=== PATIENT | female | born 1960 | race Caucasian/White ===

== ENCOUNTER 2019-11-08 09:17 | Outpatient (CLI) | payer MEDICAID, SELFPAY ==
--- NOTE | 2019-11-08 09:30 | USCV_ITS ---
Bret Matilda Age: 59 Gender: F : 1960 Exam Date: 11/08/2019 09:24 Ordering Phys: Margy Covington MD ([email or web address]) Technologist: Ying Stephenson Exam Location: [facility] [place] Indication: ABDOMINAL PAIN POST EVAR HISTORY: Abdominal pain post evar Diameter (cm) AP x Transverse x Length Velocity (cm/s) Waveform Prox Aorta: 1.64 x 1.72 x 76.70 Mid Aorta: 1.34 x 1.51 x 113.00 Distal Aorta: 1.17 x 1.46 x 93.00 Right Iliac Prox: 1.14 x 0.96 x 74.80 Left Iliac Prox: 0.82 x 0.84 x 92.90 Stent Prox Landing x x Aneurysmal Sac Max x x Lt Lat Sac Dim Rt Lat Sac Dim Stent Dist Landing x x Right Iliac Stent x x Left Iliac Stent x x Right Renal Art Left Renal Art FINDINGS: Related to heavy diffuse plaques in the abdominal aorta Normal Doppler flow velocities in the stented segment of the aorta The aneurysm sac could not be well visualized Aortic stent graft was visualized but the landing zones could not be identified CONCLUSIONS Aortic stent graft appears to be patent. Moderate to heavy diffuse plaques in the abdominal aorta Aneurysm sac could not be visualized Normal proximal common iliac artery dimensions bilaterally Technically difficult study Consider CTA, to better evaluate the abdominal aorta, if clinically indicated Dr Herman Elaine MD FAC (Electronically Signed) Final Date: 11 November 2019 19:48 S
--- NOTE | 2019-11-08 10:15 | USCV_ITS ---
Bret Matilda Age: 59 Gender: F : 1960 Exam Date: 11/08/2019 09:42 Ordering Phys: Margy Covington MD ([email or web address]) Technologist: Ying Stpehenson Exam Location: [facility] [place] Indication: LEG PAIN Risk Factors: AAA Previous Vascular Surgery: STENTS RIGHT LEFT BP: 163.0 / 72.00 BP: 160.0/ 68.00 0 0 Waveform Velocity (cm/s) Velocity (cm/s) Waveform Biphasic 132.1 Iliac Prox 173.8 Biphasic Biphasic Iliac Mid Biphasic 144.5 106.8 Biphasic 155.7 Iliac Distal 106.8 Biphasic Biphasic 151.7 LAY OUT DRAFTER 124.9 Biphasic Biphasic 93.4 SFA Prox 56.8 Biphasic Biphasic 81.3 SFA Mid 67.9 Biphasic Biphasic 82.6 SFA Dist 64.2 Biphasic Biphasic 53.8 POP 53.1 Biphasic Biphasic 69.2 TAPE FOLDING MACHINE OPERATOR 46.9 Biphasic Biphasic 44.2 DPA 30.7 Biphasic 0.9 ADITYA 0.9 FINDINGS RT TAPE FOLDING MACHINE OPERATOR 150 RT DPA 120 LT TAPE FOLDING MACHINE OPERATOR 130 LT DPA 145 Mild to moderate plaques in the iliac arteries bilaterally CONCLUSIONS 1. Slightly diminished resting ABIs bilaterally, suggestive of mild peripheral artery disease 2. Mild to moderate plaques bilaterally in the iliac arteries. Dr Herman Elaine MD [facility] (Electronically Signed) Final Date: 11 November 2019 19:52 S
== END 2019-11-08 09:18 | disposition home or self-care (01) ==
PROVIDERS: Family Provider Nurse Practitioner; PCP Nurse Practitioner; Visit Provider Internal Medicine Cardiovascular Disease
DX: M79.604 Pain in right leg (principal); M79.605 Pain in left leg; I73.9 Peripheral vascular disease, unspecified; I70.8 Atherosclerosis of other arteries; R10.9 Unspecified abdominal pain; I71.4 Abdominal aortic aneurysm, without rupture
CPT/HCPCS: 93925; 93978

== ENCOUNTER 2020-03-04 13:05 | Outpatient (CLI) | payer MEDICAID, SELFPAY ==
--- NOTE | 2020-03-04 14:15 | USCV_ITS ---
ElisabethMatilda oswald Age: 59 Gender: F : 1960 Exam Date: 03/04/2020 13:26 Ordering Phys: Margy Covington MD ([email or web address]) Technologist: Kari Kolb [place] [facility] [place]ication: PAD Risk Factors: Previous Vascular Surgery: Right Brachial BP: / Left Brachial BP: / Right Left Velocity (cm/s) Spectral Plaque Velocity (cm/s) Spectral Plaque Syst/Diast Broadening Syst/Diast Broadening 80.50/ 20.90 Prox CCA 64.70 / 18.80 76.10/ 18.70 Mid CCA 62.80 / 15.00 72.80/ 20.90 Distal CCA 61.00 / 18.80 51.80/ 20.90 Prox ICA 174.40/ 35.90 56.20/ 16.50 Mid ICA 67.40 / 23.80 63.90/ 19.80 Distal ICA 53.50 / 20.60 101.40 ECA 107.90 0.84 ICA/CCA 2.78 Antegrade Vertebral Antegrade 41.50/ 8.30 cm/s 34.50/ 6.80 cm/s Bi Subclavian Bi 81.40 163.9 0 FINDINGS Comparison: none available. Diffuse bilateral scattered calcified plaque and intimal thickening throughout the common carotid arteries and extending through the bifurcation. Moderate stenosis left proximal ICA. Bilateral antegrade vertebral arteries. CONCLUSIONS Left ICA stenosis 50-69%. Right ICA stenosis < 50%. Dr. Denisse Solano DO (Electronically Signed) Final Date: 04 March 2020 15:24 S
== END 2020-03-04 13:06 | disposition home or self-care (01) ==
PROVIDERS: PCP Nurse Practitioner; Visit Provider Internal Medicine Cardiovascular Disease
DX: I73.9 Peripheral vascular disease, unspecified (principal); I65.23 Occlusion and stenosis of bilateral carotid arteries
CPT/HCPCS: 93880

== ENCOUNTER → 2020-09-08 15:14 | Outpatient (BNVA) | payer MEDICAID, SELFPAY | PROVIDERS: PCP Nurse Practitioner; Visit Provider Nurse Practitioner | DX: J44.9 Chronic obstructive pulmonary disease, unspecified (principal) | CPT/HCPCS: 71046; 80053; 85025 ==

== ENCOUNTER 2020-12-17 08:20 | Outpatient (CLI) | payer MEDICAID, SELFPAY ==
--- NOTE | 2020-12-17 08:27 | USCV_ITS ---
Matilda Queen Age: 60 Gender: F : 1960 Exam Date: 12/17/2020 09:06 Ordering Phys: Margy Covington MD ([email or web address]) Technologist: Maxi Leigh [place] [facility] [place]ication: LV FUNCTION/ PSVT BP: 139 / 67 HR: 48 Rhythm: Sinus Technical Quality: Fair MEASUREMENTS (Male / Female) Normal Values 2D ECHO LV Diastolic Diameter PLAX 3.3 cm 4.2 - 5.9 / 3.9 - 5.3 cm LV Systolic Diameter PLAX 2.2 cm IVS Diastolic Thickness 0.8 cm 0.6 - 1.0 / 0.6 - 0.9 cm IVS Systolic Thickness 1.3 cm LVPW Diastolic Thickness 1.3 cm 0.6 - 1.0 / 0.6 - 0.9 cm LVPW Systolic Thickness 1.3 cm LVOT Diameter 2.0 cm LV Ejection Fraction 2D Teich 64.7 % LV Ejection Fraction MOD 2C 74.9 % LV Ejection Fraction 2C AL 75.8 % LA Diameter 3.0 cm LA Width 2.8 cm LA Height 4.3 cm RA Width 2.5 cm RA Height 3.4 cm Aorta at Sinotubular Diameter 1.9 cm DOPPLER AV Peak Velocity 113.0 cm/s LVOT Peak Velocity 81.0 cm/s AV Area Cont Eq vti 2.4 cm squared AV Area Cont Eq pk 2.2 cm squared MV Peak Velocity 520.0 cm/s MV Area PHT 3.0 cm squared Mitral E to A Ratio 1.0 MV E' Velocity 49.5 cm/s Mitral E to MV E' Ratio 7.5 Mitral E to LV E' Lateral Ratio 7.4 Mitral E to LV E' Septal Ratio 7.6 TR Peak Velocity 172.4 cm/s TR Peak Gradient 11.9 mmHg TR Mean Velocity 78.0 cm/s TR Mean Gradient 2.5 mmHg TR Velocity Time Integral 28.6 cm PV Peak Velocity 48.0 cm/s FINDINGS Left Ventricle Normal left ventricular cavity size and systolic function. Upper normal left ventricular wall thickness. Left ventricular ejection fraction is estimated at 65 %. No regional wall motion abnormalities. Normal diastolic function. Right Ventricle Normal right ventricular size and systolic function. Right ventricular systolic pressure 26 mmHg. Right Atrium Normal right atrial size. Right atrial pressure estimated at 3 mmHg. Left Atrium Mildly increased left atrial size. Mitral Valve Mildly thickened mitral valve. No mitral valve stenosis. Trace mitral valve regurgitation. Aortic Valve Aortic valve not well visualized. No aortic valve stenosis. No aortic valve regurgitation. Tricuspid Valve Structurally normal tricuspid valve. No tricuspid valve stenosis. Mild tricuspid valve regurgitation. Pulmonic Valve Pulmonic valve not well visualized. No significant pulmonary valve regurgitation. Pericardium No pericardial effusion. Aorta Normal-sized aortic root. Normal-sized inferior vena cava with less than 50% respiratory variation. CONCLUSIONS 1. Normal left ventricular cavity size and systolic function. Upper normal left ventricular wall thickness. Left ventricular ejection fraction is estimated at 65 %. No regional wall motion abnormalities. Normal diastolic function. 2. Normal right ventricular size and systolic function. 3. Pulmonary artery pressure estimated 26 mmHg. 4. Mild tricuspid valve regurgitation. 5. No prior similar studies to compare. Margy Covington MD (Electronically Signed) Final Date: 19 December 2020 10:07 S
== END 2020-12-17 08:21 | disposition home or self-care (01) ==
PROVIDERS: PCP Nurse Practitioner; Visit Provider Internal Medicine Cardiovascular Disease
DX: Z86.79 Personal history of other diseases of the circulatory system (principal); I07.1 Rheumatic tricuspid insufficiency
CPT/HCPCS: 93306

== ENCOUNTER 2021-03-30 10:38 | Outpatient (CLI) | payer MEDICAID, SELFPAY ==
--- NOTE | 2021-03-30 10:44 | XR_ITS ---
WS: [id number] XR hip LT 2-3V wo/w pel* [id number] REASON FOR EXAM: M25.552 - Pain in left hip FINDINGS: Moderately severe narrowing of the joint space. Osteophytosis and sclerosis of the adjacent acetabulum and femoral head. Presumed calcification of the joint capsule versus tendon calcification/insertion greater trochanter. This has developed since the previous examination 2011. No focal bone lesion. No fracture or dislocation. XR/XR hip LT 2-3V wo/w pel* [id number] IMPRESSION: Moderately severe changes of osteoarthritis in the left hip which show progress ion compared to 05/07/2011.
== END 2021-03-30 10:39 | disposition home or self-care (01) ==
PROVIDERS: PCP Nurse Practitioner; Visit Provider Nurse Practitioner Family
DX: M16.12 Unilateral primary osteoarthritis, left hip (principal)
CPT/HCPCS: 73502

== ENCOUNTER 2021-04-06 14:41 | Outpatient (CLI) | payer MEDICAID, SELFPAY ==
--- NOTE | 2021-04-06 15:00 | USCV_ITS ---
Matilda Queen Age: 60 Gender: F : 1960 Exam Date: 04/06/2021 14:48 Ordering Phys: Josefa Gold PROPAGATOR LABORER-Hiro Technologist: Exam Location[place] [facility] [place]ication: LT LEG PAIN AND EDEMA HISTORY: Lower extremity pain. PROCEDURES: Venous duplex imaging was performed in only the left lower extremity. The following venous structures were evaluated: common femoral vein, profunda vein, proximal portion of the greater saphenous vein, superficial femoral vein, and the popliteal vein. In addition, the posterior tibial and peroneal trunk were evaluated. FINDINGS: Normal 2-D Doppler and augmentation and compressibility throughout the lower extremity venous structures. Additional imaging through the proximal calf veins also reveals no thrombus. Limited evaluation of the greater saphenous vein is patent with no thrombus.. Normal 2-D Doppler and augmentation and compressibility throughout the lower extremity venous structures. Additional imaging through the proximal calf veins also reveals no thrombus. Limited evaluation of the greater saphenous vein is patent with no thrombus.. CONCLUSIONS No evidence of left lower extremity DVT. Sergio Acosta MD (Electronically Signed) Final Date: 06 April 2021 17:49 S
== END 2021-04-06 14:42 | disposition home or self-care (01) ==
LOC: RAD 14:42
PROVIDERS: PCP Nurse Practitioner; Visit Provider Nurse Practitioner Family
DX: M79.605 Pain in left leg (principal); R60.0 Localized edema
CPT/HCPCS: 93971

== ENCOUNTER → 2021-07-02 10:06 | Outpatient (BNVA) | payer MEDICAID, SELFPAY | PROVIDERS: PCP Nurse Practitioner; Visit Provider Nurse Practitioner Family | DX: M54.50 Low back pain, unspecified (principal); Z79.899 Other long term (current) drug therapy | CPT/HCPCS: 81000 ==

== ENCOUNTER 2021-07-17 07:53 | Outpatient (CLI) | payer MEDICAID, SELFPAY ==
[2021-07-17 08:20] VITALS: BMI 17.7
--- NOTE | 2021-07-17 08:35 | NMCV_ITS ---
NM luis perf SPECT r/s* [id number] Matilda Queen Age: 61 Gender: F : 1960 Exam Date: 07/17/2021 09:21 Ordering Phys: Margy Covington MD ([email or web address]) Technologist: KITTY Rosario Exam Location: [facility] Indications: CHEST PAIN STRESS TEST Please see separate stress test report in [facility] for full findings IMAGE PROTOCOL Rest/Stress 1 Lexiscan Day Radiopharmaceutical Dose (mCi) Administration Site Administered by Rest: Tc-99m 10.6 IV KITTY Howell Sestamibi Stress:Tc-99m 33.0 IV KITTY Howell Sestamibi Rest: 17-Jul-2021 60 Discovery 630 Stress: 17-Jul-2021 30 Discovery 630 0.4mg Lexiscan. Images obtained in supine and prone position. SPECT RESULTS Technical Quality: Excellent Raw Data Analysis: Normal Image Corrections: No attenuation or motion correction applied Summed Stress Score: 0 Summed Rest Score: 0 Summed Difference Score: 0 PERFUSION FINDINGS SPECT images demonstrate homogeneous tracer distribution throughout the myocardium. FUNCTIONAL RESULTS (calculated via Gated SPECT) Stress Image LV EF (%): 88 Stress EDV (mL):58 TID: 0.81 Stress ESV (mL):7 FUNCTIONAL FINDINGS: The left ventricle is normal in size. Transient Ischemia Dilatation of 0.81. There is hyperdynamic left ventricular global systolic function, LVEF=88%. There is hyperdynamic left ventricular wall thickening. IMPRESSIONS 1. Myocardial perfusion imaging is normal. 2. Overall left ventricular systolic function is hyperdynamic without regional wall motion abnormalities, LVEF=88%. 3. No significant EKG changes with Lexiscan infusion. Refer to separate report for details. 4. Scan indicates low risk for cardiac events. Margy Covington MD (Electronically Signed) Final Date: 20 July 2021 18:15 S
--- NOTE | 2021-07-17 08:35 | ECG_ITS ---
[facility] Test Date: 2021-07-17 Pat Name: Matilda Queen Department: Room: Gender: Female Pipe Production Worker: Lurdes Lopez : 1960 Requested By: Margy Covington Order Number: [id number] Simon MD: Margy Cvoington M.D. Interpretive Statements NAME OF STUDY: LEXISCAN SESTAMIBI STRESS TEST INDICATION: Chest Pain PROCEDURE: At the baseline, the blood pressure was 158/109 mmHg with a heart rate of 63 bpm. The electrocardiogram showed sinus rhythm, normal axis. Poor anterior R wave progression. ST depression in inferolateral leads. The Lexiscan was infused over a period of 20 seconds. A total of 0.4 milligrams of Lexiscan was infused. The stress phase was continued for a total of 5 minutes. Heart rate at the end of the stress phase was 77 bpm with a blood pressure of 145/79 mmHg. The EKG at the peak infusion revealed sinus rhythm at 77 bpm with no significant ST-T wave changes. The study was terminated due to protocol completion. Isolated PVCs noted during Lexiscan infusion. Sestamibi was injected 20 seconds after the Lexiscan infusion. Blood pressure at the end of the recovery phase was 147/67 mmHg with a heart rate of 76 beats per minute. CONCLUSION: 1. No significant EKG changes with the LexiScan infusion. 2. No LexiScan induced chest pain or cardiac arrhythmia. 3. Normal blood pressure and heart rate response. 4. Sestamibi/sestamibi perfusion scan pending; see separate report. Electronically Signed On 07-20-2021 18:08:28 CDT by Margy Covington M.D. [id number]
--- NOTE | 2021-07-17 10:11 | PC.NURSE ---
pt not able to complete exercise treadmil. will order lexiscan and complete it.
[2021-07-17] MEDS: regadenoson 0.4 Mg/5 ml Syringe IVP (10:25)
[2021-07-17 10:33] VITALS: BP 147/67; PULSE 71
== END 2021-07-17 07:54 | disposition home or self-care (01) ==
LOC: CDL 07:55
PROVIDERS: PCP Nurse Practitioner; Visit Provider Internal Medicine Cardiovascular Disease
DX: R07.9 Chest pain, unspecified (principal)
CPT/HCPCS: 78452; 93017; A9500; J2785

== ENCOUNTER → 2021-11-27 08:57 | Outpatient (BNVA) | payer MEDICAID, SELFPAY | PROVIDERS: PCP Nurse Practitioner; Visit Provider Internal Medicine Cardiovascular Disease | DX: R07.9 Chest pain, unspecified (principal); I10 Essential (primary) hypertension; I74.09 Other arterial embolism and thrombosis of abdominal aorta; I73.9 Peripheral vascular disease, unspecified; I47.1 Supraventricular tachycardia; I25.10 Atherosclerotic heart disease of native coronary artery without angina pectoris; F17.200 Nicotine dependence, unspecified, uncomplicated | CPT/HCPCS: 99214 ==

== ENCOUNTER → 2022-04-26 11:26 | Outpatient (BNVA) | payer MEDICAID, SELFPAY | PROVIDERS: PCP Nurse Practitioner; Visit Provider Nurse Practitioner | DX: R05.9 Cough, unspecified (principal) | CPT/HCPCS: 71046; 80053; 80061; 84443; 85025 ==

== ENCOUNTER → 2022-05-26 13:15 | Outpatient (BNVA) | payer MEDICAID, SELFPAY | PROVIDERS: PCP Nurse Practitioner; Visit Provider Nurse Practitioner | DX: J44.9 Chronic obstructive pulmonary disease, unspecified (principal) | CPT/HCPCS: 71046 ==

== ENCOUNTER → 2022-08-16 08:48 | Outpatient (BNVA) | payer MEDICAID, SELFPAY | PROVIDERS: PCP Nurse Practitioner; Visit Provider Podiatrist Foot & Ankle Surgery | DX: I73.9 Peripheral vascular disease, unspecified (principal); B35.1 Tinea unguium; S90.221A Contusion of right lesser toe(s) with damage to nail, initial encounter; X58.XXXA Exposure to other specified factors, initial encounter | CPT/HCPCS: 11721; 99203 ==

== ENCOUNTER → 2022-08-25 10:29 | Outpatient (BNVA) | payer MEDICAID, SELFPAY | PROVIDERS: PCP Nurse Practitioner; Visit Provider Nurse Practitioner Family | DX: J44.1 Chronic obstructive pulmonary disease with (acute) exacerbation (principal); R05.9 Cough, unspecified | CPT/HCPCS: 71046; 87426 ==

== ENCOUNTER → 2022-10-25 08:49 | Outpatient (BNVA) | payer MEDICAID, SELFPAY | PROVIDERS: PCP Nurse Practitioner; Visit Provider Podiatrist Foot & Ankle Surgery | DX: I73.9 Peripheral vascular disease, unspecified (principal); B35.1 Tinea unguium | CPT/HCPCS: 11721 ==

== ENCOUNTER → 2023-01-04 09:26 | Outpatient (BNVA) | payer MEDICAID, SELFPAY | PROVIDERS: PCP Nurse Practitioner; Visit Provider Nurse Practitioner Family | DX: R05.9 Cough, unspecified (principal); Z20.822 Contact with and (suspected) exposure to COVID-19; J44.1 Chronic obstructive pulmonary disease with (acute) exacerbation | CPT/HCPCS: 71046; 87426 ==

== ENCOUNTER 2023-01-12 12:57 | Emergency (ER) | payer MEDICAID, SELFPAY ==
[2023-01-12 13:01] VITALS: BP 144/61; PULSE 73; RESP 18; O2SAT 96; BMI 17.4
[2023-01-12 13:25] VITALS: O2SAT 98
[2023-01-12 13:26] VITALS: BP 137/57; PULSE 70; RESP 18; O2SAT 98
--- NOTE | 2023-01-12 13:42 | XRR_ITS ---
PROCEDURE INFORMATION: Exam: XR Chest Exam date and time: 01/12/2023 1:47 PM Age: 62 years old Clinical indication: Cough and shortness of breath TECHNIQUE: Imaging protocol: Radiologic exam of the chest. Views: 2 views. COMPARISON: CR XR chest 2V* [id number] 01/04/2023 9:28 AM FINDINGS: Lungs: Unchanged COPD with hyperexpansion of the lungs. Improved bilateral lower lung atelectasis and/or pneumonitis. Unchanged calcified granuloma left upper lung. Pleural spaces: Unremarkable. No pleural effusion. No pneumothorax. Heart/Mediastinum: Unremarkable. No cardiomegaly. Bones/joints: Unchanged mild scoliosis and mild multilevel thoracic spondylosis XR/XR chest 2V* [id number] IMPRESSION: 1. Improved bibasilar atelectasis and/or pneumonitis. 2. COPD findings, unchanged.
[2023-01-12 13:48] LABS: Basophils % 0.1 %; Eosinophils # 0.3 10^3/uL (0.0-0.8); Hematocrit 42.9 % (36-47); Lymphocytes # 1.8 10^3/uL (0.8-4.8); Lymphocytes % 14.1 %; Mean Corpuscular HGB Conc 33.3 g/dL (30-55); Mean Corpuscular Hemoglobin 29.5 pg (27-33); Mean Corpuscular Volume 88.6 fl (85-98); Mean Platelet Volume 10.9 fL (7.4-10.4); Monocytes # 0.5 10^3/uL (0.2-0.9); Monocytes % 4.1 %; Neutrophils # 10.18 10^3/uL (1.8-7.7); Neutrophils % 79.4 %; Nucleated Red Blood Cells % 0 %; Platelet Count 265 10^3/cmm (157-399); Red Blood Count 4.84 10^6/uL (3.85-5.65); Red Cell Distribution Width 13.5 % (12.1-15.1); White Blood Count 12.81 10^3/uL (3.29-11.43)
[2023-01-12 14:37] VITALS: BP 137/57; PULSE 72; RESP 18; O2SAT 95
[2023-01-12 14:38] LABS: Anion Gap 17.3 (5-19); Blood Urea Nitrogen 18 mg/dL (8-23); Calcium 9.2 mg/dL (8.5-10.5); Carbon Dioxide 25 mmol/L (22-29); Chloride 98 mmol/L (98-107); Glomerular Filtration Rate 84.5 mL/min (90-130); Glucose 83 mg/dL (65-115); NT Pro B Type Natriuretic Pept 244 pg/mL (0-125); Osmolality Calculated 283 mOsm/kg (285-295); Potassium 4.3 mmol/L (3.5-5.1); Sodium 136 mmol/L (136-145)
[2023-01-12 15:23] VITALS: BP 137/57; PULSE 67; RESP 18; O2SAT 93
--- NOTE | 2023-01-12 15:41 | W.ED.WEAKNES ---
HPI - Weakness General: Chief complaint: Weakness Stated complaint: weakness/fainting/right sided rib pain Time Seen by Provider: 01/12/23 13:28 History of Present Illness: This patient is a 62-year-old white female who presents to the emergency department stating that she was diagnosed with pneumonia 10 days ago at the clinic. She was placed on doxycycline. She has a couple days left on that. She feels like she has not had much improvement on the antibiotic. She continues to cough up yellow phlegm. She has not had a fever. She has been having problems with acid reflux as well. She states in the clinic she did have a chest x-ray which did reveal the pneumonia and she was also tested for COVID and influenza and those were negative. Patient does have history of COPD and coronary artery disease. She does continue to smoke. Review of Systems General: Reports: 10 or more systems reviewed and unremarkable except in HPI and below PFSH ED PFSH: Medical History Anxiety disorder, unspecified Body mass index (BMI) of 19 or less in adult Carotid artery disease COPD, moderate Essential (primary) hypertension H/O paroxysmal supraventricular tachycardia History of cervical cancer History of spina bifida Mixed hyperlipidemia PAD (peripheral artery disease) Penetrating atherosclerotic ulcer of aorta Renal artery stenosis Smoker Vitamin D insufficiency Surgical History H/O: hysterectomy Family History Other Cancer Heart disease Hypertension Social History Smoking and tobacco status: current every day smoker Second hand smoke exposure: Yes Smoking risk assessment/counseling performed?: Yes Alcohol intake: never Desire information about alcohol rehabilitation?: No Counseling given: No Substance/Drug Use: never Desire information about substance/drug rehabilitation?: No Counseling given: No Caregiver/support person: No Lives independently: Yes Household members: spouse Marital status: Number of children: 2 service: No Current occupational status: disabled Do you think of yourself as: Straight/Heterosexual Current gender identity: Female Physical Exam Const: COMMON NORMALS: no acute distress and patient oriented x3 HENMT: COMMON NORMALS: normocephalic, Normal nasal mucous membranes and turbinates present, moist oral mucous membranes and oropharynx normal HEAD & SCALP: normocephalic NOSE: Normal nasal mucous membranes and turbinates present Eye: COMMON NORMALS: Equal, round and reactive pupils present, EOMs intact bilaterally and conjunctivae normal CONJUNCTIVA: Yes conjunctivae normal PUPIL: Yes Equal, round and reactive pupils present Neck/C-Spine: COMMON NORMALS: supple and no JVD Resp: COMMON NORMALS: normal respiratory effort AUSCULTATION: crackles Laterality: right Cardio: COMMON NORMALS: no JVD, regular rate and regular rhythm RATE: regular rate RHYTHM: regular rhythm GI: COMMON NORMALS: Normal to inspection, nondistended, normoactive bowel sounds present, Soft to palpation and non-tender PALPATION: Yes Soft to palpation Neuro: COMMON NORMALS: patient oriented x3 Skin: COMMON NORMALS: no rashes or lesions noted GENERAL SKIN EXAM: no rashes or lesions noted Course Vital Signs: Vital signs: Vital Signs Pulse Rate 67 01/12/23 15:23 Respiratory Rate 18 01/12/23 15:23 Blood Pressure 137/57 01/12/23 15:23 Pulse Oximetry 93 01/12/23 15:23 Oxygen Delivery Me thod Room Air 01/12/23 15:23 MDM - Weakness Medical Decision Making CBC reveals a white blood cell count of 12.8. Patient has been on prednisone which likely is causing the leukocytosis. BMP was normal. BNP was 244. Chest x-ray reveals that the infiltrate on the right lower lobe has improved significantly. This was read by the radiologist I also reviewed the x-rays. I discussed all of the results and findings with the patient. I do not recommend different antibiotic at this point. She has finished her prednisone burst and taper. I will place her on another burst and taper. She is having significant acid reflux which could be contributing to the coughing as well. I did place her on Prilosec. Recommended she follow-up with her primary care provider within 1 week for recheck. She was discharged in stable condition. Lab Data 01/12/23 13:55 01/12/23 13:55 Radiology Impressions Chest X-Ray 01/12/23 13:42 IMPRESSION: 1. Improved bibasilar atelectasis and/or pneumonitis. 2. COPD findings, unchanged. Laboratory Results WBC 12.81 10^3/uL (3.29-11.43) H 01/12/23 13:55 RBC 4.84 10^6/uL (3.85-5.65) 01/12/23 13:55 Hgb 14.30 g/dL (11.27-16.99) 01/12/23 13:55 Hct 42.9 % (36-47) 01/12/23 13:55 MCV 88.6 fl (85-98) 01/12/23 13:55 MCH 29.5 pg (27-33) 01/12/23 13:55 MCHC 33.3 g/dL (30-55) 01/12/23 13:55 RDW 13.5 % (12.1-15.1) 01/12/23 13:55 Plt Count 265 10^3/cmm (157-399) 01/12/23 13:55 MPV 10.9 fL (7.4-10.4) H 01/12/23 13:55 Neut % (Auto) 79.4 % 01/12/23 13:55 Lymph % (Auto) 14.1 % 01/12/23 13:55 Callahan % (Auto) 4.1 % 01/12/23 13:55 Eos % (Auto) 2.0 % 01/12/23 13:55 Baso % (Auto) 0.1 % 01/12/23 13:55 Neut # (Auto) 10.18 10^3/uL (1.8-7.7) H 01/12/23 13:55 Lymph # (Auto) 1.8 10^3/uL (0.8-4.8) 01/12/23 13:55 Callahan # (Auto) 0.5 10^3/uL (0.2-0.9) 01/12/23 13:55 Eos # (Auto) 0.3 10^3/uL (0.0-0.8) 01/12/23 13:55 Baso # (Auto) 0.0 10^3/uL (0.0-0.1) 01/12/23 13:55 Nucleated RBC % (auto) 0 % 01/12/23 13:55 Nucleated RBCs # 0.0 /100WBC 01/12/23 13:55 Sodium 136 mmol/L (136-145) 01/12/23 13:55 Potassium 4.3 mmol/L (3.5-5.1) 01/12/23 13:55 Chloride 98 mmol/L (98-107) 01/12/23 13:55 Carbon Dioxide 25 mmol/L (22-29) 01/12/23 13:55 Anion Gap 17.3 (5-19) 01/12/23 13:55 BUN 18 mg/dL (8-23) 01/12/23 13:55 Creatinine 0.7 mg/dL (0.5-0.9) 01/12/23 13:55 GFR Calculation 84.5 mL/min (90-130) L 01/12/23 13:55 Glucose 83 mg/dL (65-115) 01/12/23 13:55 Calculated Osmolality 283 mOsm/kg (285-295) L 01/12/23 13:55 Calcium 9.2 mg/dL (8.5-10.5) 01/12/23 13:55 NT-Pro-B Natriuret Pep 244 pg/mL (0-125) H 01/12/23 13:55 All radiology interpretation(s) finalized by discharge Discharge Plan Discharge Patient Disposition: Home Clinical Impression: Pneumonia, GERD (gastroesophageal reflux disease) Condition: Stable Prescriptions: New prednisone 5 mg tablets,dose pack See Rx Instructions .ROUTE .COMPLEX Qty: 21 0RF Rx Instructions: prednisone 5 mg: take 8 tablets (40 mg) on Day 1; 7 tablets (35 mg) on Day 2; then decrease by 1 tablet every day until finished Prilosec 10 mg susp,delayed release for recon 20 mg PO DAILY 28 Days Qty: 30 0RF No Action albuterol sulfate [ProAir HFA] 90 mcg/actuation HFA aerosol inhaler 2 puff inhalation QID PRN (Reason: shortness of breath or wheezing) Qty: 6.7 0RF (DME) nebulizer accessories Kit See Rx Instructions .Route Qty: 1 0RF Rx Instructions: As directed (DME) compressor, for nebulizer Device See Rx Instructions .Route Qty: 1 0RF Rx Instructions: As directed (DME) nebulizers Misc See Rx Instructions .ROUTE .MEDSUPPLY Qty: 1 0RF Rx Instructions: use daily as needed calcium acetate 1 tab PO DAILY aspirin [Adult Low Dose Aspirin] 81 mg tablet,delayed release (DR/EC) 81 mg PO DAILY budesonide 0.5 mg/2 mL suspension for nebulization 0.5 mg inhalation Q12H Qty: 120 0RF albuterol sulfate 2.5 mg /3 mL (0.083 %) solution for nebulization 2.5 mg inhalation QID PRN (Reason: shortness of breath or wheezing) Qty: 180 5RF Probiotic Digestive Care 20 billion cell capsule See Rx Instructions PO .2 times day Qty: 60 2RF Rx Instructions: 20 billion cell PO .2 times day; budesonide-formoterol [Symbicort] 160-4.5 mcg/actuation HFA aerosol inhaler 2 puff inhalation BID Qty: 10.2 5RF doxycycline hyclate 100 mg capsule 100 mg PO BID Qty: 20 0RF prednisone 20 mg tablet 20 mg PO BID Qty: 10 0RF promethazine-DM 6.25-15 mg/5 mL syrup 5 - 10 ml PO Q6H PRN (Reason: cough) 7 Days Qty: 240 0RF verapamil 180 mg capsule,ext rel. pellets 24 hr 180 mg PO DAILY Qty: 90 3RF pravastatin 40 mg tablet 40 mg PO QPM Discharge Orders: Discharge ED (Routine); Ordered 01/12/23 Ordered By: Robe Aquino Referrals: Kacie Mayer FNP-C [Primary Care Provider] - Coding Level of Care Code ED Welding Machine Operator Electron Beam for Malcolm Costa
== END 2023-01-12 15:52 | disposition home or self-care (01) ==
PROVIDERS: Emergency Provider Emergency Medicine; PCP Nurse Practitioner
DX: J18.9 Pneumonia, unspecified organism (principal); K21.9 Gastro-esophageal reflux disease without esophagitis; Z79.82 Long term (current) use of aspirin; F17.210 Nicotine dependence, cigarettes, uncomplicated; J44.9 Chronic obstructive pulmonary disease, unspecified; I10 Essential (primary) hypertension; Z85.41 Personal history of malignant neoplasm of cervix uteri; E78.2 Mixed hyperlipidemia
CPT/HCPCS: 36415; 71046; 80048; 83880; 85025; 99284

== ENCOUNTER → 2023-02-01 08:59 | Outpatient (BNVA) | payer MEDICAID, SELFPAY | PROVIDERS: PCP Nurse Practitioner; Visit Provider Nurse Practitioner Family | DX: J18.9 Pneumonia, unspecified organism (principal); I25.10 Atherosclerotic heart disease of native coronary artery without angina pectoris; J44.9 Chronic obstructive pulmonary disease, unspecified; I10 Essential (primary) hypertension; Z12.39 Encounter for other screening for malignant neoplasm of breast | CPT/HCPCS: 71046; 80053; 80061; 84443; 85025 ==

== ENCOUNTER 2023-05-10 17:06 | Emergency (ER) | payer MEDICAID, SELFPAY ==
[2023-05-10 17:17] VITALS: BP 144/64; PULSE 58; RESP 12; TEMP 36.7; O2SAT 97; BMI 17.2
--- NOTE | 2023-05-10 17:26 | ECG_ITS ---
[facility] Test Date: 2023-05-10 Pat Name: Matilda Queen Department: Room: Gender: Female Fiber Optic Splicer: : 1960 Requested By: Jerica Castellano Order Number: [id number] Simon MD: Herman Elaine M.D. Measurements Intervals [place] Rate: 56 P: 84 TN: 180 QRS: 77 QRSD: 100 T: 70 QT: 414 QTc: 401 Interpretive Statements SINUS BRADYCARDIA POSSIBLE LEFT ATRIAL ENLARGEMENT [-0.1mV P-WAVE IN V1/V2] No previous ECG available for comparison Electronically Signed On 05-10-2023 19:57:01 BRUSHER TENDER by Herman Elaine M.D. [id number]
[2023-05-10 18:34] LABS: Basophils % 0.6 %; Eosinophils # 0.1 10^3/uL (0.0-0.8); Eosinophils % 1.9 %; Hematocrit 45.2 % (36-47); Lymphocytes # 1.7 10^3/uL (0.8-4.8); Lymphocytes % 34.9 %; Mean Corpuscular HGB Conc 32.3 g/dL (30-55); Mean Corpuscular Hemoglobin 29.4 pg (27-33); Mean Corpuscular Volume 90.9 fl (85-98); Mean Platelet Volume 10.1 fL (7.4-10.4); Monocytes # 0.5 10^3/uL (0.2-0.9); Monocytes % 10.5 %; Neutrophils # 2.48 10^3/uL (1.8-7.7); Neutrophils % 51.9 %; Nucleated Red Blood Cells % 0 %; Platelet Count 198 10^3/cmm (157-399); Red Blood Count 4.97 10^6/uL (3.85-5.65); Red Cell Distribution Width 13.5 % (12.1-15.1); White Blood Count 4.78 10^3/uL (3.29-11.43)
[2023-05-10 18:53] LABS: Alanine Aminotransferase 15 U/L (0-33); Albumin Level 3.8 g/dL (3.5-5.2); Alkaline Phosphatase 72 U/L (35-105); Anion Gap 13.1 (5-19); Aspartate Amino Transferase 13 U/L (0-32); Blood Urea Nitrogen 10 mg/dL (8-23); Calcium 9.4 mg/dL (8.5-10.5); Carbon Dioxide 27 mmol/L (22-29); Chloride 105 mmol/L (98-107); Globulin 3.1 g/dL (1.3-4.6); Glomerular Filtration Rate 72.4 mL/min (90-130); Glucose 90 mg/dL (65-115); Lipase 56 U/L (13-60); Osmolality Calculated 291 mOsm/kg (285-295); Potassium 4.1 mmol/L (3.5-5.1); Sodium 141 mmol/L (136-145); Total Bilirubin 0.2 mg/dL (0.15-1.2); Total Protein 6.9 g/dL (6.6-8.7)
[2023-05-10 19:05] LABS: Slide Review Slide Review Perform
--- NOTE | 2023-05-10 19:13 | XRR_ITS ---
PROCEDURE INFORMATION: Exam: XR Chest Exam date and time: 05/10/2023 7:20 PM Age: 62 years old Clinical indication: Pain; Other: Epigastric; Prior surgery; Surgery date: 6+ months; Surgery type: Open heart; Additional info: Epigastric pain, thinks internal cardiac leads poking herskin TECHNIQUE: Imaging protocol: Radiologic exam of the chest. Views: 2 views. COMPARISON: CR XR chest 2V* [id number] 02/01/2023 8:57 AM FINDINGS: Tubes, catheters and devices: Abandoned cardiac lead wires project through the anterior lower chest with lead wire tips just deep to the skin surface anteriorly (this is best appreciated on the lateral view). Lungs: No focal consolidation. Pleural spaces: Unremarkable. No pleural effusion. No pneumothorax. Heart/Mediastinum: Unremarkable. No cardiomegaly. Vasculature: Partially visualized vascular stent in the upper abdomen. Bones/joints: Prior median sternotomy and CABG. XR/XR chest 2V* [id number] IMPRESSION: 1. Abandoned cardiac lead wires project through the anterior lower chest with lead wire tips just deep to the skin surface anteriorly (this is best appreciated on the lateral view). 2. No focal consolidation.
--- NOTE | 2023-05-10 19:15 | ED_ITS ---
HPI - Chest Pain 2 General: Chief Complaint: Chest Pain Stated Complaint: pain upper abd Time Seen by Provider: 05/10/23 18:44 History of Present Illness: Patient presents to the ER with concerns at her implantable cardiac leads from her three-vessel bypass in February are poking her skin in her epigastric region. Patient says she has bumped these leads several times since February which did cause pain however she has not bumped them and they started hurting at 8:00 this morning and has not stopped hurting since then. Patient did call [facility] they told her to come to the ER to be evaluated to be seen. Patient says she has these leads that they cut off and pushed underneath the skin and sewed the skin back over the many epigastric region instead of taking them out from her three-vessel bypass surgery. These are totally different than the sternotomy wires. Patient does not have active cardiac type chest pain, shortness of breath, diaphoresis, nausea vomiting diarrhea. Fever, chills, Review of Systems 2 General: Reports: 10 or more systems reviewed and unremarkable except in HPI and below PFSH ED 2 PFSH: Medical History Carotid artery disease PAD (peripheral artery disease) Body mass index (BMI) of 19 or less in adult Renal artery stenosis Penetrating atherosclerotic ulcer of aorta Smoker H/O paroxysmal supraventricular tachycardia Anxiety disorder, unspecified Mixed hyperlipidemia History of cervical cancer History of spina bifida COPD, moderate Essential (primary) hypertension Vitamin D insufficiency Surgical History H/O: hysterectomy Family History Other Cancer Heart disease Hypertension Social History Smoking and tobacco/nicotine status: current every day tobacco/nicotine user Second hand smoke exposure: Yes Alcohol intake: never Substance/Drug Use: never Caregiver/support person: No Lives independently: Yes Household members: spouse Marital status: Number of children: 2 service: No Current occupational status: disabled Do you think of yourself as: Straight/Heterosexual Current gender identity: Female Physical Exam 2 Const: COMMON NORMALS: no acute distress, average body habitus, patient oriented x3, no limitations, healthy appearing, alert and well nourished HENMT: COMMON NORMALS: normocephalic, atraumatic, hearing grossly normal bilaterally, external ears normal, Normal external nose present, moist oral mucous membranes and oropharynx normal HEAD & SCALP: normocephalic and atraumatic NOSE: Normal external nose present EXTERNAL EAR: Yes external ears normal Neck/C-Spine: COMMON NORMALS: no JVD Chest: COMMONS NORMALS: normal inspection of the chest and normal palpation of entire chest wall Resp: COMMON NORMALS: normal respiratory effort, No retractions, No use of accessory muscles and clear to auscultation bilaterally AUSCULTATION: clear to auscultation bilaterally Cardio: COMMON NORMALS: no JVD, regular rate, regular rhythm, S1 normal heart sound present, S2 normal heart sound present, No gallops present (Cardio), No clicks present (Cardio), No murmurs present (Cardio) and No rub (Cardio) R ATE: regular rate RHYTHM: regular rhythm HEART SOUNDS: S1 normal heart sound present and S2 normal heart sound present GI: COMMON NORMALS: Normal to inspection, nondistended, normoactive bowel sounds present, Soft to palpation and no bruits; negative for non-tender (Well-healed incisions, protuberant lumps that are significantly tender to p) PALPATION: Yes Soft to palpation Neuro: COMMON NORMALS: patient oriented x3 SENSORIUM/ORIENTATION: Yes alert Course 2 Vital Signs: Vital signs: Vital Signs Temperature 98.1 F 05/10/23 17:17 Pulse Rate 52 L 05/10/23 19:37 Respiratory Rate 16 05/10/23 19:37 Blood Pressure 152/87 05/10/23 19:37 Pulse Oximetry 97 05/10/23 19:37 Oxygen Delivery Me thod Room Air 05/10/23 17:17 MDM - Chest Pain Medical Decision Making Patient presented with anterior chest wall/epigastric type pain. Patient was worked up 2 view chest x-ray, lab work and EKGs. Chest x-ray showed anterior abandoned cardiac wires projecting very close to the skin surface. Otherwise was normal. Lab work was unremarkable. These results was discussed with the patient will follow-up with her sheriff sergeant and cardiothoracic surgeon about the future of these wires and the potential that they may need to be removed. Patient is willing to try some tramadol for pain for the time being. Patient be discharged home with a prescription for tramadol No. 15. Patient should follow- up with her PCP/sheriff sergeant/cardiothoracic surgeon within the next 7 to 10 days for further evaluation and treatment. Differential Diagnosis Unlikely acute massive pulmonary embolism, acute respiratory failure, acute myocardial infarction, cardiac arrest or sudden cardiac Medical Records I reviewed the patient's medical records. Lab Data I reviewed the patient's lab results. 05/10/23 18:27 05/10/23 18: Radiology Impressions Chest X-Ray 05/10/23 19:13 IMPRESSION: 1. Abandoned cardiac lead wires project through the anterior lower chest with lead wire tips just deep to the skin surface anteriorly (this is best appreciated on the lateral view). 2. No focal consolidation. Laboratory Results WBC 4.78 10^3/uL (3.29-11.43) 05/10/23 18: RBC 4.97 10^6/uL (3.85-5.65) 05/10/23 18: Hgb 14.60 g/dL (11.27-16.99) 05/10/23 18: Hct 45.2 % (36-47) 05/10/23 18: MCV 90.9 fl (85-98) 05/10/23: MCH 29.4 pg (27-33) 05/10/23 18: MCHC 32.3 g/dL (30-55) 05/10/23 18: RDW 13.5 % (12.1-15.1) 05/10/23 18: Plt Count 198 10^3/cmm (157-399) 05/10/23: MPV 10.1 fL (7.4-10.4) 05/10/23 18: Neut % (Auto) 51.9 % 05/10/23 18: Lymph % (Auto) 34.9 % 05/10/23 18: [place] % (Auto) 10.5 % 05/10/23 18: Eos % (Auto) 1.9 % 05/10/23 18: Baso % (Auto) 0.6 % 05/10/23 18: Neut # (Auto) 2.48 10^3/uL (1.8-7.7) 05/10/23 18: Lymph # (Auto) 1.7 10^3/uL (0.8-4.8) 05/10/23 18: [place] # (Auto) 0.5 10^3/uL (0.2-0.9) 05/10/23 18: Eos # (Auto) 0.1 10^3/uL (0.0-0.8) 05/10/23 18: Baso # (Auto) 0.0 10^3/uL (0.0-0.1) 05/10/23 18: Nucleated RBC % (auto) 0 % 05/10/23 18: Nucleated RBCs # 0.0 /100WBC 05/10/23 18: Sodium 141 mmol/L (136-145) 05/10/23 18: Potassium 4.1 mmol/L (3.5-5.1) 05/10/23 18: Chloride 105 mmol/L (98-107) 05/10/23 18: Carbon Dioxide 27 mmol/L (22-29) 05/10/23 18: Anion Gap 13.1 (5-19) 05/10/23 18: BUN 10 mg/dL (8-23) 05/10/23 18: Creatinine 0.8 mg/dL (0.5-0.9) 05/10/23 18: GFR Calculation 72.4 mL/min (90-130) L 05/10/23 18: Glucose 90 mg/dL (65-115) 05/10/23 18: Calculated Osmolality 291 mOsm/kg (285-295) 05/10/23 18: Calcium 9.4 mg/dL (8.5-10.5) 05/10/23 18: Total Bilirubin 0.2 mg/dL (0.15-1.2) 05/10/23 18: AST 13 U/L (0-32) 05/10/23 18: ALT 15 U/L (0-33) 05/10/23 18: Alkaline Phosphatase 72 U/L (35-105) 05/10/23 18: Total Protein 6.9 g/dL (6.6-8.7) 05/10/23 18: Albumin 3.8 g/dL (3.5-5.2) 05/10/23 18:27 Globulin 3.1 g/dL (1.3-4.6) 05/10/23 18:27 Lipase 56 U/L (13-60) 05/10/23 18:27 Urine Color Yellow (Yellow) 05/10/23 19:05 Urine Appearance Clear (CLEAR) 05/10/23 19:05 Urine pH 5 (5-7) 05/10/23 19:05 Ur Specific [place] 1.020 (1.005-1.030) 05/10/23 19:05 Urine Protein Neg (Negative) 05/10/23 19:05 Urine Glucose (UA) Norm (Normal) 05/10/23 19:05 Urine Ketones Negative (Negative) 05/10/23 19:05 Urine Blood Neg (Negative) 05/10/23 19:05 Urine Nitrate Negative (Negative) 05/10/23 19:05 Urine Bilirubin Neg (Negative) 05/10/23 19:05 Urine Urobilinogen Norm mg/dL (Negative) 05/10/23 19:05 Ur Leukocyte Esterase Negative (Negative) 05/10/23 19:05 All radiology interpretation(s) finalized by discharge Discharge Plan Discharge Patient Disposition: Home Clinical Impression: Atypical chest pain Condition: Stable Prescriptions: No Action (DME) nebulizer accessories Kit See Rx Instructions .Route Qty: 1 0RF Rx Instructions: As directed (DME) compressor, for nebulizer Device See Rx Instructions .Route Qty: 1 0RF Rx Instructions: As directed (DME) nebulizers Misc See Rx Instructions .ROUTE .MEDSUPPLY Qty: 1 0RF Rx Instructions: use daily as needed calcium acetate 1 tab PO DAILY aspirin [Adult Low Dose Aspirin] 81 mg tablet,delayed release (DR/EC) 81 mg PO DAILY budesonide 0.5 mg/2 mL suspension for nebulization 0.5 mg inhalation Q12H Qty: 120 0RF albuterol sulfate 2.5 mg /3 mL (0.083 %) solution for nebulization 2.5 mg inhalation QID PRN (Reason: shortness of breath or wheezing) Qty: 180 5RF Probiotic Digestive Care 20 billion cell capsule See Rx Instructions PO .2 times day Qty: 60 2RF Rx Instructions: 20 billion cell PO .2 times day; clopidogrel 75 mg tablet 75 mg PO DAILY metoprolol tartrate 25 mg tablet 25 mg PO BID pantoprazole 40 mg tablet,delayed release (DR/EC) 40 mg PO DAILY doxycycline hyclate 100 mg tablet 100 mg PO BID Qty: 14 0RF prednisone 20 mg tablet 20 mg PO BID Qty: 10 0RF promethazine-DM 6.25-15 mg/5 mL syrup 5 - 10 ml PO Q6H PRN (Reason: cough) 7 Days Qty: 240 0RF albuterol sulfate [ProAir HFA] 90 mcg/actuation HFA aerosol inhaler 2 puff inhalation QID PRN (Reason: shortness of breath or wheezing) Qty: 6.7 2RF budesonide-formoterol [Symbicort] 160-4.5 mcg/actuation HFA aerosol inhaler 2 puff inhalation BID Qty: 10.2 5RF pravastatin 40 mg tablet 40 mg PO QPM prednisone 5 mg tablets,dose pack See Rx Instructions .ROUTE .COMPLEX Qty: 21 0RF Rx Instructions: prednisone 5 mg: take 8 tablets (40 mg) on Day 1; 7 tablets (35 mg) on Day 2; then decrease by 1 tablet every day until finished Discharge Orders: Discharge ED (Routine); Ordered 05/10/23 Ordered By: Sly Rogers Referrals: Kacie Mayer, HOSP[facility]TEER[facility] [Primary Care Provider] - 1 week Patient Instructions: Chest Pain (ED) Activity Restrictions/Additional Instructions: Your x-ray was reviewed with you in the ER. These shows these cardiac wires very close to the skin surface under the area that is very sensitive to touch. These wires do not appear to be problematic at this time other than overly sensitive. Please take your medicine as directed to help with this pain as it may not help very much. Please follow-up with your sheriff sergeant/cardiothoracic surgeon to talk about the future of these wires and if they start causing more problems the potential to change these wires that include possibly repositioning or removing them. If your pain worsens or becomes uncontrollable please return to the ER. Coding Level of Care Code ED Rn Corrections for Malcolm Costa
[2023-05-10 19:33] LABS: Add Urine Microscopic? NO; Charge for UA Resulting for Rev
[2023-05-10 19:37] VITALS: BP 152/87; PULSE 52; RESP 16; O2SAT 97
[2023-05-10 19:41] LABS: Bilirubin Urine Neg (Negative); Blood Urine Neg (Negative); Glucose Urine UA Norm (Normal); Ketones Urine Negative (Negative); Leukocyte Esterase Urine Negative (Negative); Nitrate Urine Negative (Negative); Protein Urine Neg (Negative); Urine Appearance Clear (CLEAR); Urine Color Yellow (Yellow); Urobilinogen Urine Norm (Negative); pH Urine 5 (5-7)
== END 2023-05-10 20:32 | disposition home or self-care (01) ==
PROVIDERS: Emergency Medicine; Emergency Provider Emergency Medicine; PCP Nurse Practitioner
DX: R07.89 Other chest pain (principal); Z79.02 Long term (current) use of antithrombotics/antiplatelets; Z79.82 Long term (current) use of aspirin; Z72.0 Tobacco use; E78.2 Mixed hyperlipidemia; Z85.41 Personal history of malignant neoplasm of cervix uteri; J44.9 Chronic obstructive pulmonary disease, unspecified; I10 Essential (primary) hypertension
CPT/HCPCS: 36415; 71046; 80053; 81003; 83690; 85025; 93005; 99285

== ENCOUNTER → 2023-10-17 10:16 | Outpatient (BNVA) | payer MEDICAID, SELFPAY | PROVIDERS: PCP Nurse Practitioner; Visit Provider Nurse Practitioner Family | DX: J44.1 Chronic obstructive pulmonary disease with (acute) exacerbation (principal) | CPT/HCPCS: 80053; 85025 ==

== ENCOUNTER → 2023-10-18 12:51 | Outpatient (BNVA) | payer MEDICAID, SELFPAY | PROVIDERS: PCP Nurse Practitioner; Visit Provider Nurse Practitioner Family | DX: R19.7 Diarrhea, unspecified (principal) | CPT/HCPCS: 87045; 87427; 87449 ==

== ENCOUNTER → 2024-05-31 15:45 | Outpatient (BNVA) | payer MEDICAID, SELFPAY | PROVIDERS: PCP Clinical Nurse Specialist Adult Health; Visit Provider Nurse Practitioner | DX: I10 Essential (primary) hypertension (principal); E78.2 Mixed hyperlipidemia; E55.9 Vitamin D deficiency, unspecified | CPT/HCPCS: 80053; 80061; 82306; 82607; 84443; 85025 ==

== ENCOUNTER → 2024-11-01 10:41 | Outpatient (BNVA) | payer MEDICARE, MEDICAID, SELFPAY | PROVIDERS: PCP Nurse Practitioner; Visit Provider Nurse Practitioner | DX: I10 Essential (primary) hypertension (principal); E78.2 Mixed hyperlipidemia | CPT/HCPCS: 80053; 84443; 85025 ==

== ENCOUNTER 2024-11-06 14:42 | Outpatient (CLI) | payer MEDICARE, MEDICAID, SELFPAY ==
--- NOTE | 2024-11-06 14:52 | XR_ITS ---
WS: [id number] Thoracic spine, 3 views, 11/06/2024 Clinical Data: M54.50 - Low back pain, unspecified Comparison: Thoracic spine, 07/28/2018. Findings: No compression fractures are seen. The disc heights are normal. The paravertebral regions are normal. The patient has had a midline sternotomy repaired with small plates and screws. There are additional small wires overlying the T10-L1 anterior tissue. XR/XR thoracic spine 3V* 61522 Impression: Negative thoracic spine.
--- NOTE | 2024-11-06 14:52 | XR_ITS ---
WS: [id number] Lumbar spine, 3 views, 11/06/2024 Clinical Data: M54.50 - Low back pain, unspecified Comparison: Lumbar spine, 07/28/2018 Findings: No compression fractures or subluxation is seen. No disc space narrowing is seen. There is minimal anterior osteophyte formation L1-L5. The transverse processes and SI joints are normal. There is facet joint arthritis L5-S1. There is an aortic stent graft extending into the common iliac arteries. XR/XR lumbar spine 2-3V* 21051 Impression: 1. Minimal osteophytes L1-L5. 2. Facet joint arthritis L5-S1.
--- NOTE | 2024-11-06 15:30 | XR_ITS ---
WS: [id number] SCREENING DEXA SCAN [employer] CLINICAL INFORMATION: Z78.0 - Asymptomatic menopausal state COMPARISON: None. FINDINGS: The LEFT forearm bone mineral density measures 0.604. This corresponds to a T score score of -3.1 and Z score of -1.7. Right forearm bone mineral density measures 0.57. This corresponds to a T score -3.5 of and Z score of -2.1. XR/XR DEXA axial skeleton* 19992 IMPRESSION: Osteoporosis RIGHT and LEFT forearms.
== END 2024-11-06 14:43 | disposition home or self-care (01) ==
LOC: RAD 14:44
PROVIDERS: PCP Nurse Practitioner; Visit Provider Nurse Practitioner
DX: Z13.820 Encounter for screening for osteoporosis (principal); Z78.0 Asymptomatic menopausal state; M54.6 Pain in thoracic spine; M81.0 Age-related osteoporosis without current pathological fracture; Z97.8 Presence of other specified devices; Z98.890 Other specified postprocedural states; M25.78 Osteophyte, vertebrae; M47.817 Spondylosis without myelopathy or radiculopathy, lumbosacral region; Z12.11 Encounter for screening for malignant neoplasm of colon
CPT/HCPCS: 72072; 72100; 77080; 99024; 99204

== ENCOUNTER 2024-11-15 08:50 | Day surgery (SDC) | payer MEDICARE, MEDICAID, SELFPAY ==
[2024-11-15 09:11] VITALS: BP 116/79; PULSE 52; RESP 18; TEMP 36.1; O2SAT 96; BMI 18.3
--- NOTE | 2024-11-15 09:47 | W.PM.OPSUD ---
Surgery/Procedure H&P Update DATE OF PROCEDURE: November 15, 2024 DATE H&P PERFORMED: 11/06/24 H&P UPDATE INFORMATION: I have reviewed H&P completed within last 30 days, I have examined patient prior to procedure, No changes to prior documentation, H&P is in [facility] EMR on date indicated and Risks and benefits of the procedure reviewed PLANNED PROCEDURE: Operation Date: 11/15/24 10:35 Proposed Procedures p Colonoscopy 47432 G0121 Z12.11(Not Applicable) - Will Dos Santos MD
--- NOTE | 2024-11-15 09:59 | ANES.PREANE2 ---
Pre-Anesthetic Assessment Height/Weight: Height 1.57 m Weight 45.359 kg Temp Pulse Resp BP Pulse Ox O2 Del Method 97 F L 52 L 18 116/79 96 Room Air 11/15/24 09:11 11/15/24 09:11 11/15/24 09:11 11/15/24 09:11 11/15/24 09:11 11/15/24 09:11 Preop Diagnosis: Screening Operation Date: 11/15/24 10:35 Proposed Procedures p Colonoscopy 76488 G0121 Z12.11(Not Applicable) - Will Dos Santos MD Was Beta Shruti taken within 24 hours: Yes Was Clonidine taken within 24 hours: N/A Last intake: Intake Last Liquid Date 11/14/24 Last Liquid Time 00:30 Last Solid Date 11/13/24 Last Solid Time 18:00 Social Tobacco and No alcohol Exam alert, oriented x 3, clear to auscultation bilaterally and regular rate & rhythm Airway Submandibular: within normal limits Cervical ROM: within normal limits Mallampati: Class II Dentition: false History/ROS No significant history except as noted and No significant complaints Pulmonary Chronic Obstructive Pulmonary Disease CV/HEM Hypertension and Peripheral Vascular Disease Aortic aneurysm stent None reported Hepatic None reported GI None reported Metabolic None reported Musc/skel Osteoarthritis/DJD Neuropsych None reported Anesthetic Plan ASA status: 3 Anesthesia: Anesthesia Evaluation and MAC Risk of > 500 ml blood loss (7ml/kg in children): No Medications/Allergies Home Medications ?Medication ?Instructions ?Recorded ?Confirmed ?Last Taken ?Type aspirin 81 mg tablet,delayed 81 mg PO DAILY 10/12/19 11/12/24 11/12/24 History release (Adult Low Dose Aspirin) compressor, for nebulizer #1 ea 08/29/20 11/12/24 Unknown Rx nebulizer accessories #1 ea 08/29/20 11/12/24 Unknown Rx nebulizers #1 ea 09/11/20 11/12/24 Unknown Rx albuterol sulfate 2.5 mg/3 mL 2.5 mg (3 mL) inhalation QID PRN 05/31/24 11/12/24 Unknown Rx (0.083 %) solution for nebulization shortness of breath or wheezing #300 mL amlodipine 5 mg tablet 5 mg PO QDAY 05/31/24 11/12/24 11/14/24 History budesonide 0.5 mg/2 mL suspension 0.5 mg (2 mL) inhalation Q12H #120 05/31/24 11/12/24 Unknown Rx for nebulization mL clopidogrel 75 mg tablet 75 mg PO QDAY 05/31/24 11/12/24 11/09/24 History mupirocin 2 % topical ointment 1 applic topical BID #15 grams 08/29/24 11/12/24 11/13/24 Rx albuterol sulfate 90 mcg/actuation 2 puff inhalation QID PRN 11/01/24 11/12/24 Unknown Rx aerosol inhaler shortness of breath or wheezing #6.7 grams budesonide-formoterol HFA 160 2 puff inhalation BID #10.2 grams 11/01/24 11/12/24 Unknown Rx mcg-4.5 mcg/actuation aerosol inhaler (Symbicort) cholecalciferol (vitamin D3) 125 125 mcg PO DAILY #30 caps 11/01/24 11/12/24 11/13/24 Rx mcg (5,000 unit) capsule metoprolol tartrate 25 mg tablet 12.5 mg (1/2 x 25 mg) PO BID #30 11/01/24 11/12/24 11/14/24 Rx tabs calcium 500 mg (as 1 tab PO .2 times day #60 tabs 11/12/24 11/13/24 11/13/24 Rx carbonate)-vitamin D3 15 mcg (600 unit) tablet (Os-Kevin 500 + D3) ibandronate 150 mg tablet 150 mg PO .monthly #1 tab 11/12/24 11/13/24 Unknown Rx Allergies Allergy/AdvReac Type Severity Reaction Status Date / Time rosuvastatin (From Crestor) Allergy ADR-Numbnes Verified 11/12/24 15:51 s levofloxacin (From Levaquin) AdvReac Severe ADR-Shakine Verified 11/12/24 15:51 ss lisinopril AdvReac Unknown Verified 11/12/24 15:51 Current Medications Generic Name Dose Route Start Last Admin Trade Name Freq PRN Reason Stop Dose Admin Sodium Chloride 1,000 mls @ 15 mls/hr 11/15/24 09:02 11/15/24 09:16 Sodium Chloride 0.9% IV 11/16/24 09:01 15 mls/hr .Q24H PRN Administration COLONOSCOPY FLUIDS PFSH Anesthesia Medical History (Updated 11/12/24 @ 16:24 by PAOLO Logan) Osteoporosis Carotid artery disease PAD (peripheral artery disease) Body mass index (BMI) of 19 or less in adult Renal artery stenosis Penetrating atherosclerotic ulcer of aorta Smoker H/O paroxysmal supraventricular tachycardia Anxiety disorder, unspecified Mixed hyperlipidemia History of cervical cancer History of spina bifida COPD, moderate Essential (primary) hypertension Vitamin D insufficiency Surgical History History of bilateral cataract extraction 2024 H/O: hysterectomy Family History Other Cancer Heart disease Hypertension Social History Smoking and tobacco/nicotine status: current every day tobacco/nicotine user Second hand smoke exposure: Yes Alcohol intake: never Substance/Drug Use: never Caregiver/support person: No Lives independently: Yes Household members: spouse Marital status: Number of children: 2 service: No Current occupational status: disabled Do you think of yourself as: Straight/Heterosexual Current gender identity: Female Data Anesthesia Cardiac Studies: Echocardiogram 12/17/20 Sestamibi Stress Test (Cardiology) 07/17/21
[2024-11-15 11:03] VITALS: BP 86/47; PULSE 46; RESP 16; TEMP 36.3; O2SAT 100
[2024-11-15 11:18] VITALS: BP 109/55; PULSE 47; RESP 16; O2SAT 100
--- NOTE | 2024-11-15 12:19 | PC.NURSE ---
Cecum time 1050
== END 2024-11-15 11:35 | disposition home or self-care (01) ==
PROVIDERS: PCP Nurse Practitioner; Visit Provider Surgery
PROC: 0DJD8ZZ Inspection of Lower Intestinal Tract, Via Natural or Artificial Opening Endoscopic (ICD-10-PCS; CPT 45378; principal; 2024-11-15 10:35)
DX: Z12.11 Encounter for screening for malignant neoplasm of colon (principal); K52.9 Noninfective gastroenteritis and colitis, unspecified; J44.9 Chronic obstructive pulmonary disease, unspecified; I10 Essential (primary) hypertension; I73.9 Peripheral vascular disease, unspecified; F17.200 Nicotine dependence, unspecified, uncomplicated; E78.2 Mixed hyperlipidemia; M19.91 Primary osteoarthritis, unspecified site; Z79.82 Long term (current) use of aspirin; Z79.899 Other long term (current) drug therapy; Z79.02 Long term (current) use of antithrombotics/antiplatelets; Z88.8 Allergy status to other drugs, medicaments and biological substances; Z85.41 Personal history of malignant neoplasm of cervix uteri; Z80.0 Family history of malignant neoplasm of digestive organs
CPT/HCPCS: 45380; 88305; J2704; J7030

== ENCOUNTER → 2024-12-11 09:48 | Outpatient (BNVA) | payer MEDICARE, MEDICAID, SELFPAY | PROVIDERS: PCP Nurse Practitioner; Visit Provider Surgery | DX: Z09 Encounter for follow-up examination after completed treatment for conditions other than malignant neoplasm (principal) | CPT/HCPCS: 99212 ==

== ENCOUNTER → 2025-03-12 10:05 | Outpatient (BNVA) | payer MEDICARE, MEDICAID, SELFPAY | PROVIDERS: PCP Nurse Practitioner; Visit Provider Clinical Nurse Specialist Adult Health | DX: M25.552 Pain in left hip (principal); M16.12 Unilateral primary osteoarthritis, left hip | CPT/HCPCS: 73502 ==